=== PATIENT | male | born 1985 | race Hispanic/Latino ===

== ENCOUNTER 2018-10-07 21:12 | Emergency (ER) | payer BC, SELFPAY ==
[2018-10-07 21:38] LABS: #Basophils 0.1 thou/uL (0.0-0.2); #Eosinphils 0.2 thou/uL (0.0-0.7); #Lymphocytes 3.3 thou/uL (1.20-3.40); #Monocytes 0.8 thou/uL (0.11-0.59); #Neutrophils 6.7 thou/uL (1.40-6.50); %Basophils 1.1 % (0.0-1.0); %Eosinophils 1.9 % (0.0-10.0); %Lymphocytes 29.5 % (21.0-51.0); %Monocytes 7.4 % (0.0-10.0); %Neutrophils 60.2 % (42.0-75.0); Hemoglobin 14.8 g/dL (14.0-18.0); Mean Corpuscular HGB CONC 33.5 g/dL (32.0-36.0); Mean Corpuscular Volume 89.6 fL (78.0-98.0); Mean Platelet Volume 7.8 fL (7.4-10.4); Platelet Count 325 thou/uL (130-400); RBC Distribution Width 12.3 % (11.5-14.5); Red Blood Cell (RBC) Count 4.93 mill/uL (4.70-6.10); White Blood Cell (WBC) Count 11.2 thou/uL (4.8-10.8)
--- NOTE | 2018-10-07 21:45 | RAD ---
PORTABLE AP CHEST X-RAY 10/07/18 HISTORY: Chest pain. COMPARISON: None available. FINDINGS: The cardiac silhouette is magnified by projection. Pulmonary vasculature is within normal limits. The lungs are clear. Osseous structures are intact. IMPRESSION: No acute cardiopulmonary process. POS: [facility]
[2018-10-07 22:03] LABS: ALT (SGPT) 30 U/L (8-55); AST (SGOT) 11 U/L (5-34); Albumin 4.2 g/dL (3.5-5.0); Alkaline Phosphatase 62 U/L (40-150); Anion Gap 13 mmol/L (10-20); BUN (Urea Nitrogen) 13 mg/dL (8.9-20.6); Bilirubin, Total 0.2 mg/dL (0.2-1.2); CK (CPK) 92 U/L (30-200); Calc. Creatinine Clearance 0 mL/min (70-130); Calcium 9.4 mg/dL (7.8-10.44); Carbon Dioxide 24 mmol/L (22-29); Chloride 108 mmol/L (98-107); Estimated GFR-MDRD Greater than 90; Globulin 2.7 g/dL (2.4-3.5); Glucose 116 mg/dL (70-105); Potassium 4.1 mmol/L (3.5-5.1); Protein, Total 6.9 g/dL (6.0-8.3); Sodium 141 mmol/L (136-145)
[2018-10-07] MEDS ORDERED: Ibuprofen 800 MG TAB ONE (22:09)
[2018-10-07] MEDS ORDERED: Acetaminophen 500 MG TAB ONE (22:09)
--- NOTE | 2018-10-11 14:45 | EKG ---
Test Reason : Blood Pressure : / mmHG Vent. Rate : 078 BPM Atrial Rate : 078 BPM P-R Int : 162 ms QRS Dur : 084 ms QT Int : 342 ms P-R-T Axes : 008 009 015 degrees QTc Int : 389 ms Normal sinus rhythm Normal ECG Confirmed by TAMEKA CHAN, SHELLY Holloway ([id number]), assistant film editor GIANCARLO LUCAS ([id number]) on 10/11/2018 2:45:11 PM Referred By: Confirmed By:SHELLY ENGLISH MD
== END 2018-10-07 22:21 | disposition home or self-care (01) ==
LOC: ERS 21:12
DX: F43.9 Reaction to severe stress, unspecified (principal)
CPT/HCPCS: 71045; 80053; 82550; 84484; 85025; 93005